=== PATIENT | male | born 1950 | race Caucasian/White ===

== ENCOUNTER → 2018-07-08 | Outpatient (CLI) | payer MEDICARE | END | disposition home or self-care (01) | LOC: CFH 13:37 | PROVIDERS: ATTEND Internal Medicine Cardiovascular Disease | DX: I08.3 Combined rheumatic disorders of mitral, aortic and tricuspid valves (principal); I10 Essential (primary) hypertension; E78.5 Hyperlipidemia, unspecified; Z87.891 Personal history of nicotine dependence | CPT/HCPCS: 93306 ==

== ENCOUNTER 2018-10-29 10:44 | Day surgery (SDC) | payer MEDICARE ==
[~2018-10-29] VITALS: Ht 172.7 cm; Wt 72.7 kg
[2018-10-29] MEDS ORDERED: PLEASE ENTER ALLERGIES MC SCH (11:30)
[2018-10-29] MEDS ORDERED: PLEASE ENTER HEIGHT AND WEIGHT MC SCH (11:30)
[2018-10-29] MEDS ORDERED: SODIUM CHLORIDE 0.9% 1,000 ML IV SCH (11:30)
[2018-10-29 11:32] VITALS: BP 138/73
[2018-10-29] MEDS ORDERED: SIMV40TA3 PO (11:37)
[2018-10-29] MEDS ORDERED: DILT120C80 PO (11:37)
[2018-10-29] MEDS ORDERED: PROPOFOL 10 MG/ML, 20ML ONE (12:38)
== END 2018-10-29 14:09 | disposition home or self-care (01) ==
LOC: CACL 10:44
PROVIDERS: ATTEND Internal Medicine Cardiovascular Disease
DX: I34.0 Nonrheumatic mitral (valve) insufficiency (principal); I36.1 Nonrheumatic tricuspid (valve) insufficiency; E78.5 Hyperlipidemia, unspecified; I10 Essential (primary) hypertension; Z87.891 Personal history of nicotine dependence; Z88.1 Allergy status to other antibiotic agents
CPT/HCPCS: 93312; 93321; 93325; J2704

== ENCOUNTER 2018-12-06 13:11 | Day surgery (SDC) | payer MEDICARE ==
[2018-12-04 15:46] LABS: BASOPHILS # (AUTO) 0.05 x10^3/uL (0-0.1); BASOPHILS % (AUTO) 1 % (0-1); EOSINOPHILS # (AUTO) 0.02 x10^3/uL (0-0.4); EOSINOPHILS % (AUTO) 0 % (1-7); LYMPHOCYTES # (AUTO) 1.51 x10^3/uL (1-3.4); LYMPHOCYTES % (AUTO) 22 % (22-44); MD NO; MEAN CORPUSCULAR HEMOGLOBIN 30.9 pg (27.5-34.5); MEAN CORPUSCULAR HGB CONC 33.8 g/dL (33.2-36.2); MEAN CORPUSCULAR VOLUME 91.6 fL (81-97); MEAN PLATELET VOLUME 7.3 fL (7.4-10.4); MONOCYTES # (AUTO) 0.43 x10^3/uL (0.2-0.8); MONOCYTES % (AUTO) 6 % (2-9); NEUTROPHILS # (AUTO) 4.77 x10^3/uL (1.8-6.8); NEUTROPHILS % (AUTO) 70 % (42-75); PLATELET COUNT 215 x10^3/uL (130-400); RED BLOOD COUNT 5.24 x10^6/uL (4.38-5.82); RED CELL DISTRIBUTION WIDTH 13.5 % (9.4-14.8)
[2018-12-04 15:52] VITALS: BP 151/78
[2018-12-04 15:56] LABS: ANION GAP 4 mmol/L (5-15); CALCIUM 9.2 mg/dL (8.5-10.1); CHLORIDE 107 mmol/L (98-107); CREATININE 1.25 mg/dL (0.7-1.3)
[~2018-12-06] VITALS: Ht 172.7 cm; Wt 72.7 kg
[~2018-12-06 13:11] MED LIST: DILT120C80 PO; FISH1CAP PO; MELA1TAB6 PO; SIMV40TA3 PO
[2018-12-06] MEDS ORDERED: SODIUM CHLORIDE 0.9% 1,000 ML IV ONE (13:26)
[2018-12-06] MEDS ORDERED: ASPIRIN 325 MG TABLET EC PO ONE (13:30)
[2018-12-06] MEDS ORDERED: ASPIRIN 325 MG TABLET EC ONE (13:56)
[2018-12-06] MEDS ORDERED: HEPARIN 1,000 UNITS/ML, 10ML ONE (14:17)
[2018-12-06] MEDS ORDERED: VERAPAMIL 2.5 MG/ML, 2ML ONE (14:17)
[2018-12-06] MEDS ORDERED: FENTANYL PF 100 MCG/2ML ONE (14:17)
[2018-12-06] MEDS ORDERED: MIDAZOLAM 1 MG/ML, 5ML ONE (14:17)
[2018-12-06] MEDS ORDERED: LIDOCAINE-MPF 1%, 5ML ONE (14:18)
[2018-12-06] MEDS ORDERED: PRASUGREL 10 MG TABLET ONE (14:18)
== END 2018-12-06 17:00 | disposition home or self-care (01) ==
LOC: CACL 13:11
PROVIDERS: ATTEND Internal Medicine Cardiovascular Disease
DX: I08.0 Rheumatic disorders of both mitral and aortic valves (principal); E78.2 Mixed hyperlipidemia; I10 Essential (primary) hypertension; Z88.8 Allergy status to other drugs, medicaments and biological substances; Z87.891 Personal history of nicotine dependence; Z79.82 Long term (current) use of aspirin
CPT/HCPCS: 36415; 71046; 80048; 85025; 93458; 99156; C1769; C1894; J1644; J2250; J3010; Q9967

== ENCOUNTER 2019-01-24 12:14 | Outpatient (CLI) | payer MEDICARE ==
[2019-01-24 15:09] LABS: MICROSCOPIC NOT IND
[2019-01-24 15:11] LABS: CULTURE INDICATED? NO
[2019-01-24 15:13] LABS: BASOPHILS # (AUTO) 0.04 x10^3/uL (0-0.1); BASOPHILS % (AUTO) 1 % (0-1); EOSINOPHILS # (AUTO) 0.04 x10^3/uL (0-0.4); EOSINOPHILS % (AUTO) 1 % (1-7); LYMPHOCYTES # (AUTO) 1.71 x10^3/uL (1-3.4); LYMPHOCYTES % (AUTO) 24 % (22-44); MD NO; MEAN CORPUSCULAR HEMOGLOBIN 30.3 pg (27.5-34.5); MEAN CORPUSCULAR HGB CONC 32.2 g/dL (33.2-36.2); MEAN CORPUSCULAR VOLUME 94.1 fL (81-97); MEAN PLATELET VOLUME 7.2 fL (7.4-10.4); MONOCYTES # (AUTO) 0.38 x10^3/uL (0.2-0.8); MONOCYTES % (AUTO) 5 % (2-9); NEUTROPHILS % (AUTO) 69 % (42-75); PLATELET COUNT 200 x10^3/uL (130-400); RED BLOOD COUNT 5.33 x10^6/uL (4.38-5.82); RED CELL DISTRIBUTION WIDTH 13.8 % (9.4-14.8)
[2019-01-24 15:18] LABS: ALANINE AMINOTRANSFERASE 34 U/L (12-78); ALBUMIN 4.1 g/dL (3.4-5.0); ANION GAP 7 mmol/L (5-15); CALCIUM 9.2 mg/dL (8.5-10.1); CHLORIDE 106 mmol/L (98-107)
[2019-01-24 15:21] LABS: ALKALINE PHOSPHATASE 56 U/L (45-117); BILIRUBIN,TOTAL 0.8 mg/dL (0.2-1.0); CREATININE 1.24 mg/dL (0.7-1.3); TOTAL PROTEIN 7.5 g/dL (6.4-8.2)
[2019-01-24 16:35] LABS: INTERNATIONAL NORMALIZED RATIO 1.02 (0.93-1.1); PROTHROMBIN TIME 10.7 Seconds (9.6-11.5)
== END 2019-01-24 23:59 | disposition home or self-care (01) ==
LOC: CACL 12:14
PROVIDERS: ATTEND Thoracic Surgery (Cardiothoracic Vascular Surgery)
DX: I65.22 Occlusion and stenosis of left carotid artery (principal); I08.0 Rheumatic disorders of both mitral and aortic valves; M47.814 Spondylosis without myelopathy or radiculopathy, thoracic region; R94.31 Abnormal electrocardiogram [ECG] [EKG]; Z79.899 Other long term (current) drug therapy
CPT/HCPCS: 36415; 71046; 80053; 81003; 83036; 85025; 85610; 85730; 93005; 93880

== ENCOUNTER 2019-01-28 07:30 | Inpatient (IN) | payer MEDICARE ==
[~2019-01-28] VITALS: Ht 172.7 cm; Wt 88.0 kg
[~2019-01-28 07:30] MED LIST changes: +ALBUMIN HUMAN 5% 500 ML IV PRN; +DEXMEDETOMIDINE 200 MCG in SODIUM CHLORIDE 0.9% 48 ML IV SCH; +EPINEPHRINE 2 MG in SODIUM CHLORIDE 0.9% 248 ML IV SCH; +MANNITOL PMX 20% 500 ML IVPB PRN; +PHENYLEPHRINE 10 MG in SODIUM CHLORIDE 0.9% 249 ML IV PRN; +POTASSIUM CHLORIDE 80 MEQ, SODIUM BICARBONATE 8.4% 10 MEQ, MAGNESIUM SULFATE 0.5 GM, LI... IV PRN; +REGULAR INSULIN 62.5 UNITS in SODIUM CHLORIDE 0.9% 249.375 ML IV PRN
[2019-01-28 09:10] VITALS: BP_SYST 130; BP_SYST 144; BP_DIAS 78; BP_DIAS 79
[2019-01-28] MEDS ORDERED: INSULIN LISPRO 100 UNITS/ML, PEN SQ-INSULIN SCH (09:30)
[2019-01-28] MEDS ORDERED: CEFUROXIME 1.5 GM in SODIUM CHLORIDE 0.9% 50 ML IVPB ONE (09:30)
[2019-01-28] MEDS ORDERED: VANCOMYCIN 1,100 MG in SODIUM CHLORIDE 0.9% 250 ML IV ONE (09:30)
[2019-01-28] MEDS ORDERED: CHLORHEXIDINE 15 ML UDC MM PRN (09:30)
[2019-01-28 09:39] LABS: BASOPHILS # (AUTO) 0.03 x10^3/uL (0-0.1); BASOPHILS % (AUTO) 1 % (0-1); EOSINOPHILS # (AUTO) 0.02 x10^3/uL (0-0.4); EOSINOPHILS % (AUTO) 1 % (1-7); LYMPHOCYTES # (AUTO) 1.02 x10^3/uL (1-3.4); LYMPHOCYTES % (AUTO) 19 % (22-44); MD NO; MEAN CORPUSCULAR HEMOGLOBIN 30.5 pg (27.5-34.5); MEAN CORPUSCULAR HGB CONC 32.2 g/dL (33.2-36.2); MEAN CORPUSCULAR VOLUME 94.5 fL (81-97); MEAN PLATELET VOLUME 7.1 fL (7.4-10.4); MONOCYTES # (AUTO) 0.33 x10^3/uL (0.2-0.8); MONOCYTES % (AUTO) 6 % (2-9); NEUTROPHILS # (AUTO) 3.95 x10^3/uL (1.8-6.8); NEUTROPHILS % (AUTO) 74 % (42-75); PLATELET COUNT 194 x10^3/uL (130-400); RED BLOOD COUNT 4.97 x10^6/uL (4.38-5.82); RED CELL DISTRIBUTION WIDTH 13.5 % (9.4-14.8)
[2019-01-28 09:47] LABS: ALBUMIN 3.8 g/dL (3.4-5.0); CALCIUM 8.9 mg/dL (8.5-10.1)
[2019-01-28 09:48] LABS: INTERNATIONAL NORMALIZED RATIO 1.02 (0.93-1.1); PROTHROMBIN TIME 10.7 Seconds (9.6-11.5)
[2019-01-28 09:53] LABS: ALANINE AMINOTRANSFERASE 28 U/L (12-78); ALKALINE PHOSPHATASE 52 U/L (45-117); ANION GAP 4 mmol/L (5-15); CHLORIDE 109 mmol/L (98-107); TOTAL PROTEIN 6.9 g/dL (6.4-8.2)
[2019-01-28 10:25] LABS: HEMOGLOBIN A1C 5.9 % (4.2-6.3)
[2019-01-28 11:00] LABS: MICROSCOPIC NOT IND
[2019-01-28] MEDS: MUPIROCIN OINT 2%, 1 GM APPL. TP SCH ×2 (11:00→21:00)
[2019-01-28] MEDS ORDERED: MIDAZOLAM 10MG/2 ML ONE (12:22)
[2019-01-28] MEDS ORDERED: FENTANYL PF 250 MCG/5ML ONE ×5 (12:23→14:10)
[2019-01-28] MEDS ORDERED: GLYCOPYRROLATE 0.2MG/1ML, 5ML ONE (13:29)
[2019-01-28] MEDS ORDERED: PROTAMINE SULFATE 10 MG/ML, 25ML ONE ×2 (14:10)
[2019-01-28] MEDS ORDERED: CALCIUM CHLORIDE 10%, 10ML SYR ONE (14:12)
[2019-01-28] MEDS ORDERED: PHENYLEPHRINE 10 MG in SODIUM CHLORIDE 0.9% 249 ML IV PRN (14:58)
[2019-01-28] MEDS ORDERED: REGULAR INSULIN 62.5 UNITS in SODIUM CHLORIDE 0.9% 249.375 ML IV PRN (14:58)
[2019-01-28] MEDS ORDERED: DOBUTAMINE 250 MG in SODIUM CHLORIDE 0.9% 230 ML IV PRN (14:58)
[2019-01-28] MEDS ORDERED: VASOPRESSIN 50 UNIT in SODIUM CHLORIDE 0.9% 247.5 ML IV PRN (14:58)
[2019-01-28] MEDS ORDERED: NITROGLYCERIN/D5W PMX 250 ML IV PRN (14:58)
[2019-01-28] MEDS ORDERED: DEXMEDETOMIDINE 200 MCG in SODIUM CHLORIDE 0.9% 48 ML IV PRN (14:58)
[2019-01-28] MEDS ORDERED: SODIUM CHLORIDE 0.9% 1,000 ML IV PRN (14:58)
[2019-01-28] MEDS ORDERED: SODIUM BICARB 8.4%, 50ML SYRINGE IV PRN (15:00)
[2019-01-28] MEDS ORDERED: GLUCAGON 1 MG IM PRN (15:00)
[2019-01-28] MEDS ORDERED: PROCHLORPERAZINE 5 MG/ML, 2ML IVPush PRN (15:00)
[2019-01-28] MEDS: KSCALE TO 4.5 IV SCH ×2 (15:00→21:00)
[2019-01-28] MEDS ORDERED: FENTANYL PF 100 MCG/2ML IVPush PRN (15:00)
[2019-01-28] MEDS ORDERED: MIDAZOLAM 1 MG/ML, 5ML IVPush PRN (15:00)
[2019-01-28] MEDS ORDERED: EPINEPHRINE 2 MG in SODIUM CHLORIDE 0.9% 248 ML IV PRN (15:00)
[2019-01-28] MEDS ORDERED: ACETAMINOPHEN 650 MG SUPP PR PRN (15:00)
[2019-01-28] MEDS ORDERED: BISACODYL 5 MG EC TABLET PO PRN (15:00)
[2019-01-28] MEDS ORDERED: INSULIN REGULAR 100 UNITS/ML, 3ML VIAL IVPush PRN (15:00)
[2019-01-28] MEDS ORDERED: ONDANSETRON 2MG/ML, 2ML IVPush PRN (15:00)
[2019-01-28] MEDS ORDERED: ACETAMINOPHEN 325 MG TABLET PO PRN (15:00)
[2019-01-28] MEDS ORDERED: HYDROcodone/APAP 10/325 MG TABLET PO PRN (15:00)
[2019-01-28] MEDS ORDERED: morphine SULFATE 10 MG/ML, 1ML IVPush PRN (15:00)
[2019-01-28] MEDS ORDERED: DEXTROSE 4 GM TAB.CHEW PO PRN (15:00)
[2019-01-28] MEDS ORDERED: DEXTROSE 50%, 50ML SYRINGE IVPush PRN (15:00)
[2019-01-28] MEDS ORDERED: BISACODYL 10 MG SUPP PR PRN (15:00)
[2019-01-28] MEDS: INSULIN LISPRO 100 UNITS/ML, PEN SQ-INSULIN SCH ×2 (16:00→21:00)
[2019-01-28] MEDS ORDERED: HEPARIN 1,000 UNITS/ML, 30ML ONE (17:07)
[2019-01-28] MEDS ORDERED: methylPREDNISolone SOD SUCC 125 MG/2 ML ONE (17:07)
[2019-01-28] MEDS ORDERED: SODIUM BICARBONATE 1 MEQ/ML, 50ML VIAL ONE (17:07)
[2019-01-28] MEDS ORDERED: LIDOCAINE 2% 100MG/5ML SYRINGE ONE (17:07)
[2019-01-28] MEDS ORDERED: ALBUMIN HUMAN 25% 50 ML ONE (17:08)
[2019-01-28 17:25] LABS: GLUCOSE BY BLOOD GAS ANALYZER 136 mg/dL (70-110); HEMOGLOBIN BY BLOOD GAS ANALYZ 13.1 g/dL (14.0-18.0); POTASSIUM BY BLOOD GAS ANALYZR 3.1 mmol/L (3.6-5.5)
[2019-01-28] MEDS: MAGNESIUM SULFATE 1 GM in SODIUM CHLORIDE 0.9% 50 ML IVPB SCH (17:34)
[2019-01-28 17:35] LABS: INTERNATIONAL NORMALIZED RATIO 1.66 (0.93-1.1); PROTHROMBIN TIME 17.1 Seconds (9.6-11.5)
[2019-01-28] MEDS ORDERED: POTASSIUM CHLORIDE 30 MEQ in SODIUM CHLORIDE 0.9% 100 ML IV ONE (18:00)
[2019-01-28] MEDS: CEFUROXIME 1.5 GM in SODIUM CHLORIDE 0.9% 50 ML IVPB SCH (20:25)
[2019-01-28] MEDS: SODIUM CHLORIDE FLUSH 10ML SYR IVF SCH ×2 (21:00→22:21)
[2019-01-28] MEDS: MUPIROCIN OINT 2%, 22GM NAS SCH (21:00)
[2019-01-28] MEDS: DOCUSATE 100 MG CAPSULE PO SCH (21:00)
[2019-01-28] MEDS: VANCOMYCIN 1,100 MG in SODIUM CHLORIDE 0.9% 250 ML IVPB SCH (22:18)
[2019-01-28] MEDS: LACTATED RINGERS 1,000 ML IV PRN (22:19)
[2019-01-28] MEDS ORDERED: MORPHINE SULFATE 4 MG/ML, 1ML ONE (23:06)
[2019-01-29] MEDS: HYDROcodone/APAP 5/325 TABLET PO PRN ×2 (00:16→05:40)
[2019-01-29] MEDS: LACTATED RINGERS 1,000 ML IV PRN (00:38)
[2019-01-29] MEDS: KSCALE TO 4.5 IV SCH ×2 (03:00→09:00)
[2019-01-29 04:01] LABS: FIO2 RA %
[2019-01-29 04:12] LABS: INTERNATIONAL NORMALIZED RATIO 1.15 (0.93-1.1)
[2019-01-29 04:13] LABS: ALBUMIN 3.1 g/dL (3.4-5.0); ANION GAP 6 mmol/L (5-15); CALCIUM 7.7 mg/dL (8.5-10.1); CHLORIDE 117 mmol/L (98-107); CREATININE 0.95 mg/dL (0.7-1.3)
[2019-01-29 04:16] LABS: MEAN CORPUSCULAR HEMOGLOBIN 29.9 pg (27.5-34.5); MEAN CORPUSCULAR VOLUME 93.7 fL (81-97); RED BLOOD COUNT 4.04 x10^6/uL (4.38-5.82); RED CELL DISTRIBUTION WIDTH 13.5 % (9.4-14.8)
[2019-01-29 04:52] LABS: MEAN PLATELET VOLUME 7.7 fL (7.4-10.4); PLATELET COUNT 98 x10^3/uL (130-400)
[2019-01-29 05:49] LABS: BASOPHILS % (AUTO) 0 % (0-1); EOSINOPHILS % (AUTO) 0 % (1-7); LYMPHOCYTES # (AUTO) 0.26 x10^3/uL (1-3.4); LYMPHOCYTES % (AUTO) 2 % (22-44); MD SCAN; MONOCYTES # (AUTO) 0.58 x10^3/uL (0.2-0.8); MONOCYTES % (AUTO) 5 % (2-9); NEUTROPHILS # (AUTO) 10.98 x10^3/uL (1.8-6.8); NEUTROPHILS % (AUTO) 93 % (42-75)
[2019-01-29] MEDS: INSULIN LISPRO 100 UNITS/ML, PEN SQ-INSULIN SCH ×4 (07:00→20:55)
[2019-01-29] MEDS: CEFUROXIME 1.5 GM in SODIUM CHLORIDE 0.9% 50 ML IVPB SCH (07:26)
[2019-01-29] MEDS: MUPIROCIN OINT 2%, 1 GM APPL. TP SCH (07:27)
[2019-01-29] MEDS: SODIUM CHLORIDE FLUSH 10ML SYR IVF SCH ×4 (07:28→20:45)
[2019-01-29] MEDS: MUPIROCIN OINT 2%, 22GM NAS SCH ×2 (07:29→20:46)
[2019-01-29] MEDS: OXYcodone IR 5MG TABLET PO PRN ×7 (07:47→23:39)
[2019-01-29] MEDS: ASPIRIN 81 MG TABLET EC PO SCH (07:47)
[2019-01-29] MEDS: DOCUSATE 100 MG CAPSULE PO SCH ×2 (07:47→20:46)
[2019-01-29] MEDS: VANCOMYCIN 1,100 MG in SODIUM CHLORIDE 0.9% 250 ML IVPB SCH (08:14)
[2019-01-29] MEDS: WARFARIN BIOPROSTHETIC VALVE PROTOCOL 2-3 XX SCH (09:00)
[2019-01-29] MEDS ORDERED: ROCURONIUM 10 MG/ML,10ML ONE (12:47)
[2019-01-29] MEDS: MAGNESIUM SULFATE 1 GM in SODIUM CHLORIDE 0.9% 50 ML IVPB SCH (14:18)
[2019-01-29] MEDS ORDERED: WARFARIN 5 MG TABLET PO-COUM ONE (18:00)
[2019-01-29] MEDS: CHLORHEXIDINE 15 ML UDC MM SCH (20:45)
[2019-01-30] MEDS: OXYcodone IR 5MG TABLET PO PRN ×4 (00:06→16:38)
[2019-01-30 05:13] LABS: MEAN CORPUSCULAR HEMOGLOBIN 30.9 pg (27.5-34.5); MEAN CORPUSCULAR VOLUME 93.6 fL (81-97); MEAN PLATELET VOLUME 7.8 fL (7.4-10.4); PLATELET COUNT 88 x10^3/uL (130-400); RED BLOOD COUNT 4.05 x10^6/uL (4.38-5.82)
[2019-01-30 05:27] LABS: ANION GAP 8 mmol/L (5-15); CALCIUM 7.9 mg/dL (8.5-10.1); CHLORIDE 104 mmol/L (98-107); INTERNATIONAL NORMALIZED RATIO 1.05 (0.93-1.1)
[2019-01-30 05:30] LABS: CREATININE 0.98 mg/dL (0.7-1.3)
[2019-01-30 05:42] LABS: MD YES
[2019-01-30 05:43] LABS: BAND#(MANUAL) 0.75 x10^3/uL; BANDS%(MANUAL) 4 % (0-7); LYMPH#(MANUAL) 0.37 x10^3/uL (1-3.4); LYMPHS% (MANUAL) 2 % (22-44); MONOS#(MANUAL) 1.12 x10^3/uL (0.3-2.7); MONOS% (MANUAL) 6 % (2-9); SEG#(MANUAL) 16.46 x10^3/uL (1.8-6.8); SEGS% (MANUAL) 88 % (42-75)
[2019-01-30 05:44] LABS: <PLATELET ESTIMATE> DECREASED; <PLT MORPHOLOGY> NORMAL PLT MORPH; <RBC MORPHOLOGY> NORMAL
[2019-01-30] MEDS: ASPIRIN 81 MG TABLET EC PO SCH (08:05)
[2019-01-30] MEDS: HYDROcodone/APAP 5/325 TABLET PO PRN ×2 (08:05→20:40)
[2019-01-30] MEDS: CHLORHEXIDINE 15 ML UDC MM SCH ×2 (08:05→20:39)
[2019-01-30] MEDS: DOCUSATE 100 MG CAPSULE PO SCH ×2 (08:05→20:52)
[2019-01-30] MEDS: SODIUM CHLORIDE FLUSH 10ML SYR IVF SCH ×4 (08:10→20:48)
[2019-01-30] MEDS: MUPIROCIN OINT 2%, 22GM NAS SCH ×2 (08:10→20:40)
[2019-01-30] MEDS: INSULIN LISPRO 100 UNITS/ML, PEN SQ-INSULIN SCH ×4 (08:11→20:46)
[2019-01-30] MEDS: WARFARIN BIOPROSTHETIC VALVE PROTOCOL 2-3 XX SCH (08:11)
[2019-01-30] MEDS ORDERED: CEFAZOLIN PMX 1GM/50ML 50 ML IVPB ONE (10:00)
[2019-01-30] MEDS: MAGNESIUM SULFATE 1 GM in SODIUM CHLORIDE 0.9% 50 ML IVPB SCH (15:00)
[2019-01-30] MEDS ORDERED: WARFARIN 2.5 MG TABLET PO-COUM SCH (18:00)
[2019-01-30] MEDS ORDERED: WARFARIN 5 MG TABLET PO-COUM SCH (18:00)
[2019-01-30] MEDS: SIMVASTATIN 40 MG TABLET PO SCH (20:41)
[2019-01-31] MEDS: SODIUM CHLORIDE 0.9% 1,000 ML IV SCH ×3 (03:13→19:35)
[2019-01-31 03:15] LABS: MEAN CORPUSCULAR HEMOGLOBIN 31.2 pg (27.5-34.5); MEAN CORPUSCULAR HGB CONC 33.3 g/dL (33.2-36.2); MEAN CORPUSCULAR VOLUME 93.7 fL (81-97); PLATELET COUNT 71 x10^3/uL (130-400); RED BLOOD COUNT 4.12 x10^6/uL (4.38-5.82); RED CELL DISTRIBUTION WIDTH 13.8 % (9.4-14.8)
[2019-01-31 03:24] LABS: ANION GAP 7 mmol/L (5-15); CHLORIDE 107 mmol/L (98-107)
[2019-01-31 03:35] LABS: MD YES
[2019-01-31 03:36] LABS: <PLATELET ESTIMATE> DECREASED; <PLT MORPHOLOGY> NORMAL PLT MORPH; <RBC MORPHOLOGY> NORMAL; LYMPH#(MANUAL) 0.69 x10^3/uL (1-3.4); LYMPHS% (MANUAL) 5 % (22-44); MONOS#(MANUAL) 0.69 x10^3/uL (0.3-2.7); MONOS% (MANUAL) 5 % (2-9); SEG#(MANUAL) 12.42 x10^3/uL (1.8-6.8); SEGS% (MANUAL) 90 % (42-75)
[2019-01-31] MEDS: OXYcodone IR 5MG TABLET PO PRN ×2 (05:01→21:49)
[2019-01-31] MEDS: INSULIN LISPRO 100 UNITS/ML, PEN SQ-INSULIN SCH ×2 (07:00→11:00)
[2019-01-31] MEDS: DOCUSATE 100 MG CAPSULE PO SCH (09:00)
[2019-01-31] MEDS ORDERED: MAGNESIUM HYDROXIDE 8%, 30ML UDC PO PRN (11:00)
[2019-01-31] MEDS: ASPIRIN 81 MG TABLET EC PO SCH (11:04)
[2019-01-31] MEDS: CHLORHEXIDINE 15 ML UDC MM SCH (11:04)
[2019-01-31] MEDS: SODIUM CHLORIDE FLUSH 10ML SYR IVF SCH ×5 (11:04→21:45)
[2019-01-31] MEDS: MUPIROCIN OINT 2%, 22GM NAS SCH ×2 (11:06→21:42)
[2019-01-31] MEDS ORDERED: VANCOMYCIN 500 MG ONE (15:14)
[2019-01-31] MEDS ORDERED: VANCOMYCIN PMX 1GM/200ML 200 ML ONE (15:14)
[2019-01-31] MEDS ORDERED: LIDOCAINE 1%, 20ML ONE ×2 (15:14→15:22)
[2019-01-31] MEDS ORDERED: FENTANYL PF 100 MCG/2ML ONE (15:14)
[2019-01-31] MEDS ORDERED: MIDAZOLAM 1 MG/ML, 2ML ONE ×2 (15:14→15:35)
[2019-01-31] MEDS ORDERED: HOLD MEDICATION MC PRN (17:00)
[2019-01-31 18:43] VITALS: BP 126/77
[2019-01-31] MEDS: SIMVASTATIN 40 MG TABLET PO SCH (21:42)
[2019-02-01 03:55] VITALS: BP 118/84
[2019-02-01 04:27] LABS: MEAN CORPUSCULAR VOLUME 93.9 fL (81-97); MEAN PLATELET VOLUME 8.2 fL (7.4-10.4); PLATELET COUNT 88 x10^3/uL (130-400); RED BLOOD COUNT 3.84 x10^6/uL (4.38-5.82); RED CELL DISTRIBUTION WIDTH 13.7 % (9.4-14.8)
[2019-02-01 04:28] LABS: ANION GAP 6 mmol/L (5-15); CALCIUM 7.7 mg/dL (8.5-10.1); CHLORIDE 108 mmol/L (98-107)
[2019-02-01 04:29] LABS: CREATININE 0.79 mg/dL (0.7-1.3)
[2019-02-01 04:58] LABS: MD YES
[2019-02-01 04:59] LABS: BAND#(MANUAL) 0.11 x10^3/uL; BANDS%(MANUAL) 1 % (0-7); LYMPH#(MANUAL) 0.74 x10^3/uL (1-3.4); LYMPHS% (MANUAL) 7 % (22-44); MONOS#(MANUAL) 0.95 x10^3/uL (0.3-2.7); MONOS% (MANUAL) 9 % (2-9); REACTIVE LYMPHS # (MANUAL) 0.11 x10^3/uL (0-0); REACTIVE LYMPHS % (MANUAL) 1 % (0-0); SEG#(MANUAL) 8.69 x10^3/uL (1.8-6.8); SEGS% (MANUAL) 82 % (42-75)
[2019-02-01 05:00] LABS: <PLATELET ESTIMATE> DECREASED; <PLT MORPHOLOGY> NORMAL PLT MORPH; ANISOCYTOSIS 1+; OVALOCYTES 1+
[2019-02-01] MEDS: OXYcodone IR 5MG TABLET PO PRN ×2 (06:43→21:52)
[2019-02-01 06:56] VITALS: BP 130/89
[2019-02-01] MEDS: SODIUM CHLORIDE FLUSH 10ML SYR IVF SCH ×5 (07:44→21:13)
[2019-02-01] MEDS: DOCUSATE 100 MG CAPSULE PO SCH (07:44)
[2019-02-01] MEDS: ASPIRIN 81 MG TABLET EC PO SCH (08:30)
[2019-02-01] MEDS: MUPIROCIN OINT 2%, 22GM NAS SCH ×2 (08:31→21:13)
[2019-02-01 09:17] LABS: INTERNATIONAL NORMALIZED RATIO 1.06 (0.93-1.1); PROTHROMBIN TIME 11.1 Seconds (9.6-11.5)
[2019-02-01 11:46] VITALS: BP 99/68
[2019-02-01 13:59] VITALS: BP 116/73
[2019-02-01] MEDS ORDERED: WARFARIN 5 MG TABLET PO-COUM ONE (18:00)
[2019-02-01 18:24] VITALS: BP 103/69
[2019-02-01] MEDS: SIMVASTATIN 40 MG TABLET PO SCH (21:12)
[2019-02-02 00:12] VITALS: BP 107/68
[2019-02-02 04:42] LABS: BASOPHILS # (AUTO) 0.11 x10^3/uL (0-0.1); BASOPHILS % (AUTO) 1 % (0-1); EOSINOPHILS % (AUTO) 1 % (1-7); LYMPHOCYTES # (AUTO) 1.33 x10^3/uL (1-3.4); LYMPHOCYTES % (AUTO) 16 % (22-44); MD NO; MEAN CORPUSCULAR HEMOGLOBIN 31.1 pg (27.5-34.5); MEAN CORPUSCULAR HGB CONC 32.7 g/dL (33.2-36.2); MEAN CORPUSCULAR VOLUME 95.2 fL (81-97); MEAN PLATELET VOLUME 7.9 fL (7.4-10.4); MONOCYTES # (AUTO) 0.67 x10^3/uL (0.2-0.8); MONOCYTES % (AUTO) 8 % (2-9); NEUTROPHILS % (AUTO) 74 % (42-75); PLATELET COUNT 102 x10^3/uL (130-400); RED BLOOD COUNT 3.57 x10^6/uL (4.38-5.82); RED CELL DISTRIBUTION WIDTH 13.5 % (9.4-14.8)
[2019-02-02 04:47] LABS: INTERNATIONAL NORMALIZED RATIO 1.09 (0.93-1.1); PROTHROMBIN TIME 11.4 Seconds (9.6-11.5)
[2019-02-02 04:49] LABS: ANION GAP 3 mmol/L (5-15); CALCIUM 7.9 mg/dL (8.5-10.1); CHLORIDE 109 mmol/L (98-107); CREATININE 0.94 mg/dL (0.7-1.3)
[2019-02-02 06:57] VITALS: BP 108/76
[2019-02-02] MEDS: SODIUM CHLORIDE FLUSH 10ML SYR IVF SCH ×2 (08:42→08:50)
[2019-02-02] MEDS ORDERED: OXYC5TAB3 PO (08:48)
[2019-02-02] MEDS ORDERED: WARF5TAB PO-COUM (08:48)
[2019-02-02] MEDS: MUPIROCIN OINT 2%, 22GM NAS SCH (08:50)
[2019-02-02] MEDS: DOCUSATE 100 MG CAPSULE PO SCH (08:50)
[2019-02-02] MEDS ORDERED: POTASSIUM CHLORIDE 20 MEQ TAB.ER.PRT PO ONE (09:00)
[2019-02-02] MEDS ORDERED: WARFARIN 5 MG TABLET PO-COUM SCH (18:00)
== END 2019-02-02 12:12 | disposition home or self-care (01) | DRG 219 ==
LOC: ORIP 07:34 → 5SO 07:53 → CSU 12:39 → 5SO 01-31 15:34
PROVIDERS: ADMIT Thoracic Surgery (Cardiothoracic Vascular Surgery); ATTEND Thoracic Surgery (Cardiothoracic Vascular Surgery)
PROC: 02UG08Z Supplement Mitral Valve with Zooplastic Tissue, Open Approach (ICD-10-PCS; 2019-01-28)
PROC: 5A1221Z Performance of Cardiac Output, Continuous (ICD-10-PCS; 2019-01-28)
PROC: 02BG0ZZ Excision of Mitral Valve, Open Approach (ICD-10-PCS; 2019-01-28)
PROC: 03HY32Z Insertion of Monitoring Device into Upper Artery, Percutaneous Approach (ICD-10-PCS; 2019-01-28)
PROC: 05HM33Z Insertion of Infusion Device into Right Internal Jugular Vein, Percutaneous Approach (ICD-10-PCS; 2019-01-28)
PROC: B543ZZA Ultrasonography of Right Jugular Veins, Guidance (ICD-10-PCS; 2019-01-28)
PROC: 02RF0JZ Replacement of Aortic Valve with Synthetic Substitute, Open Approach (ICD-10-PCS; principal; 2019-01-28 16:00)
PROC: 02H63JZ Insertion of Pacemaker Lead into Right Atrium, Percutaneous Approach (ICD-10-PCS; 2019-01-31)
PROC: 02HK3JZ Insertion of Pacemaker Lead into Right Ventricle, Percutaneous Approach (ICD-10-PCS; 2019-01-31)
PROC: 0JH606Z Insertion of Pacemaker, Dual Chamber into Chest Subcutaneous Tissue and Fascia, Open Approach (ICD-10-PCS; 2019-01-31)
DX: I08.0 Rheumatic disorders of both mitral and aortic valves (principal); I50.33 Acute on chronic diastolic (congestive) heart failure; D68.69 Other thrombophilia; I44.2 Atrioventricular block, complete; J98.11 Atelectasis; E78.5 Hyperlipidemia, unspecified; I11.0 Hypertensive heart disease with heart failure; I45.10 Unspecified right bundle-branch block; I48.91 Unspecified atrial fibrillation; Z72.0 Tobacco use; Z79.01 Long term (current) use of anticoagulants; Z82.49 Family history of ischemic heart disease and other diseases of the circulatory system
CPT/HCPCS: 33208; 36415; 36600; 71045; 80048; 80053; 81003; 82040; 82330; 82800; 82803; 82810; 82947; 82962; 83036; 83735; 84132; 84295; 85014; 85018; 85025; 85049; 85347; 85610; 85730; 86850; 86900; 86923; 87081; 88305; 88311; 93005; 93312; 93321; 93325; 94002; 94150; 99156; 99157; C1768; C1779; C1785; C1892; G0378; J0697; J1644; J1815; J2250; J2720; J3010; J3370; J3475; J3480; P9045; P9047; C1751; C1760; J0171; J2270; J2370; J2930; J7030; J7050; J7120

== ENCOUNTER 2019-03-13 15:24 | Emergency (ER) | payer MEDICARE ==
[~2019-03-13] VITALS: Ht 172.7 cm; Wt 70.0 kg
[~2019-03-13 15:24] MED LIST changes: -ALBUMIN HUMAN 5% 500 ML IV PRN; -DEXMEDETOMIDINE 200 MCG in SODIUM CHLORIDE 0.9% 48 ML IV SCH; -EPINEPHRINE 2 MG in SODIUM CHLORIDE 0.9% 248 ML IV SCH; -MANNITOL PMX 20% 500 ML IVPB PRN; +OXYC5TAB3 PO; -PHENYLEPHRINE 10 MG in SODIUM CHLORIDE 0.9% 249 ML IV PRN; -POTASSIUM CHLORIDE 80 MEQ, SODIUM BICARBONATE 8.4% 10 MEQ, MAGNESIUM SULFATE 0.5 GM, LI... IV PRN; -REGULAR INSULIN 62.5 UNITS in SODIUM CHLORIDE 0.9% 249.375 ML IV PRN; +WARF5TAB PO-COUM
[2019-03-13 15:26] VITALS: BP 135/83
--- NOTE | 2019-03-13 16:03 | NUR ---
INTERMIITENT VISSUAL DISTURBANCE IN THE R EYE. NO SYMPTOMS AT THIS TIME. 20/25 TO BOTH EYES. REPORTS SYMPTOMS STARTED AFTER CARDIAC PROCEDURE 01/19 ON COUMADIN
[2019-03-13 16:12] LABS: INTERNATIONAL NORMALIZED RATIO 2.2 (0.93-1.1); PROTHROMBIN TIME 22.4 Seconds (9.6-11.5)
[2019-03-13 16:13] LABS: ALBUMIN 3.2 g/dL (3.4-5.0); ANION GAP 8 mmol/L (5-15); CALCIUM 9.3 mg/dL (8.5-10.1); CHLORIDE 110 mmol/L (98-107); CREATININE 1.17 mg/dL (0.7-1.3)
[2019-03-13 16:14] LABS: BASOPHILS # (AUTO) 0.04 x10^3/uL (0-0.1); BASOPHILS % (AUTO) 1 % (0-1); EOSINOPHILS # (AUTO) 0.12 x10^3/uL (0-0.4); EOSINOPHILS % (AUTO) 2 % (1-7); LYMPHOCYTES # (AUTO) 1.09 x10^3/uL (1-3.4); LYMPHOCYTES % (AUTO) 16 % (22-44); MD NO; MEAN CORPUSCULAR HGB CONC 31.5 g/dL (33.2-36.2); MEAN CORPUSCULAR VOLUME 85.8 fL (81-97); MEAN PLATELET VOLUME 6.7 fL (7.4-10.4); MONOCYTES # (AUTO) 0.36 x10^3/uL (0.2-0.8); MONOCYTES % (AUTO) 5 % (2-9); NEUTROPHILS # (AUTO) 5.13 x10^3/uL (1.8-6.8); NEUTROPHILS % (AUTO) 76 % (42-75); PLATELET COUNT 311 x10^3/uL (130-400); RED BLOOD COUNT 4.73 x10^6/uL (4.38-5.82); RED CELL DISTRIBUTION WIDTH 16.3 % (9.4-14.8)
--- NOTE | 2019-03-13 16:20 | NUR ---
TO CT SCAN
== END 2019-03-13 17:44 | disposition home or self-care (01) ==
LOC: ED 17:05
DX: H53.121 Transient visual loss, right eye (principal); G45.9 Transient cerebral ischemic attack, unspecified; Z87.891 Personal history of nicotine dependence; Z95.0 Presence of cardiac pacemaker; Z88.8 Allergy status to other drugs, medicaments and biological substances
CPT/HCPCS: 36415; 70450; 80048; 82040; 85025; 85610; 85730; 99284

== ENCOUNTER 2019-03-21 09:35 | Outpatient (CLI) | payer MEDICARE | END 2019-03-21 23:59 | disposition home or self-care (01) | LOC: RAD 09:35 | PROVIDERS: ATTEND Registered Nurse | DX: G45.8 Other transient cerebral ischemic attacks and related syndromes (principal); J32.0 Chronic maxillary sinusitis; R90.82 White matter disease, unspecified | CPT/HCPCS: 70551 ==

== ENCOUNTER 2019-04-09 14:39 | Outpatient (CLI) | payer MEDICARE | END 2019-04-09 23:59 | disposition home or self-care (01) | LOC: CVU 14:39 | PROVIDERS: ATTEND Registered Nurse | DX: G45.9 Transient cerebral ischemic attack, unspecified (principal); I10 Essential (primary) hypertension | CPT/HCPCS: 93880 ==

== ENCOUNTER 2019-08-22 10:09 | Day surgery (SDC) | payer MEDICARE ==
[~2019-08-22] VITALS: Ht 172.7 cm; Wt 67.5 kg
[~2019-08-22 10:09] MED LIST changes: +PROPOFOL 10 MG/ML, 20ML ONE
[2019-08-22 10:44] VITALS: BP 120/75
[2019-08-22] MEDS ORDERED: TAMS-11 PO (10:44)
[2019-08-22] MEDS ORDERED: DILT240C61 PO (10:44)
[2019-08-22] MEDS ORDERED: ASPI-496 PO (10:44)
[2019-08-22] MEDS ORDERED: PSYL2WAF PO (10:44)
[2019-08-22] MEDS ORDERED: FAMO10TA31 PO (10:44)
[2019-08-22] MEDS ORDERED: DOCU-131 PO (10:44)
[2019-08-22] MEDS ORDERED: SIMV40TA3 PO (10:44)
[2019-08-22 11:05] LABS: BASOPHILS # (AUTO) 0.04 x10^3/uL (0-0.1); BASOPHILS % (AUTO) 1 % (0-1); EOSINOPHILS # (AUTO) 0.02 x10^3/uL (0-0.4); EOSINOPHILS % (AUTO) 0 % (1-7); LYMPHOCYTES # (AUTO) 0.86 x10^3/uL (1-3.4); LYMPHOCYTES % (AUTO) 13 % (22-44); MD NO; MEAN CORPUSCULAR HEMOGLOBIN 27.9 pg (27.5-34.5); MEAN CORPUSCULAR HGB CONC 32.3 g/dL (33.2-36.2); MEAN CORPUSCULAR VOLUME 86.3 fL (81-97); MEAN PLATELET VOLUME 6.8 fL (7.4-10.4); MONOCYTES # (AUTO) 0.42 x10^3/uL (0.2-0.8); MONOCYTES % (AUTO) 7 % (2-9); NEUTROPHILS # (AUTO) 5.06 x10^3/uL (1.8-6.8); NEUTROPHILS % (AUTO) 79 % (42-75); PLATELET COUNT 279 x10^3/uL (130-400); RED BLOOD COUNT 4.95 x10^6/uL (4.38-5.82); RED CELL DISTRIBUTION WIDTH 16.8 % (9.4-14.8)
[2019-08-22 11:13] LABS: INTERNATIONAL NORMALIZED RATIO 2.86 (0.93-1.1); PROTHROMBIN TIME 28.8 Seconds (9.6-11.5)
[2019-08-22 11:15] LABS: ANION GAP 5 mmol/L (5-15); CHLORIDE 106 mmol/L (98-107); CREATININE 1.26 mg/dL (0.7-1.3)
== END 2019-08-22 14:24 | disposition home or self-care (01) ==
LOC: CACL 10:09
PROVIDERS: ATTEND Internal Medicine Cardiovascular Disease
DX: I48.91 Unspecified atrial fibrillation (principal); E78.5 Hyperlipidemia, unspecified; I10 Essential (primary) hypertension; Z79.82 Long term (current) use of aspirin; Z86.73 Personal history of transient ischemic attack (TIA), and cerebral infarction without residual deficits
CPT/HCPCS: 36415; 71046; 80048; 85025; 85610; 85730; 92960; J2704

== ENCOUNTER 2021-02-09 08:50 | Day surgery (SDC) | payer MEDICARE ==
[~2021-02-09 08:50] MED LIST changes: +ASPI-496 PO; +DILT240C61 PO; +DOCU-131 PO; +FAMO10TA31 PO; +MELA1TAB46 PO; -MELA1TAB6 PO; -OXYC5TAB3 PO; +OXYC5TAB98 PO; -PROPOFOL 10 MG/ML, 20ML ONE; +PSYL2WAF PO; +SIMV40TA20 PO; -SIMV40TA3 PO; +TAMS-11 PO; -WARF5TAB PO-COUM; +WARF5TAB2 PO-COUM
[2021-02-09] MEDS ORDERED: MELA5TAB21 PO (09:27)
[2021-02-09] MEDS ORDERED: DILT120T3 PO (09:27)
[2021-02-09] MEDS ORDERED: APIX5TAB PO (09:27)
[2021-02-09] MEDS ORDERED: SODIUM CHLORIDE FLUSH 10ML SYR IVF SCH (21:00)
== END 2021-02-09 10:18 | disposition home or self-care (01) ==
LOC: CACL 08:50
PROVIDERS: ATTEND Internal Medicine Cardiovascular Disease
DX: I48.91 Unspecified atrial fibrillation (principal); Z53.8 Procedure and treatment not carried out for other reasons; I44.2 Atrioventricular block, complete; I10 Essential (primary) hypertension; Z79.01 Long term (current) use of anticoagulants; Z79.899 Other long term (current) drug therapy; Z87.891 Personal history of nicotine dependence; Z88.8 Allergy status to other drugs, medicaments and biological substances; Z95.0 Presence of cardiac pacemaker
CPT/HCPCS: 93005

== ENCOUNTER → 2021-03-01 | Outpatient (CLI) | payer MEDICARE ==
[~2021-03-01] MED LIST changes: +APIX5TAB PO; +DILT120T3 PO; +MELA5TAB21 PO; +OMNIPAQUE 350 MG/ML, 150 ML BOTTLE ONE
== END | disposition home or self-care (01) ==
LOC: CFH 13:30
PROVIDERS: ATTEND Physician Assistant
DX: N28.1 Cyst of kidney, acquired (principal); R31.0 Gross hematuria
CPT/HCPCS: 74178; 82565; Q9967

== ENCOUNTER 2021-03-11 01:40 | Emergency (ER) | payer MEDICARE ==
[~2021-03-11] VITALS: Ht 172.7 cm; Wt 69.9 kg
[~2021-03-11 01:40] MED LIST changes: -OMNIPAQUE 350 MG/ML, 150 ML BOTTLE ONE
--- NOTE | 2021-03-11 02:52 | NUR ---
CLEAN CATCH UA SENT TO LAB
--- NOTE | 2021-03-11 02:59 | NUR ---
PIV STARTED TO LEFT HAND 18 G X1 ATTEMPT, AND PT TOLERATED WELL, BLOOD DRAWN FOR BLOOD CULTURE #1 AND LABS. PIV TO LEFT FOREARM 20 G X2 ATTEMPTS, STARTED, AND PT TOLERATED WELL. BLOOD CULTURES #2 DRAWN TOO. PT A&OX4, AND PTS AT BEDSIDE. PTS RECTAL TEMP IS 102.2RECTAL. MADE AWARE.
[2021-03-11] MEDS ORDERED: SODIUM CHLORIDE 0.9% 1,000ML IVBOLUS ONE (03:00)
--- NOTE | 2021-03-11 03:01 | NUR ---
EKG DONE BY MARIELOS TIDWELL PT TOLERATED WELL.
[2021-03-11] MEDS ORDERED: ACETAMINOPHEN 500 MG TABLET ONE (03:07)
[2021-03-11 03:14] LABS: MICROSCOPIC INDICATED
[2021-03-11 03:20] LABS: BASOPHILS % (AUTO) 0 % (0-1); EOSINOPHILS % (AUTO) 0 % (1-7); LYMPHOCYTES % (AUTO) 5 % (22-44); MEAN CORPUSCULAR HEMOGLOBIN 29.3 pg (27.5-34.5); MEAN CORPUSCULAR HGB CONC 33.4 g/dL (33.2-36.2); MEAN PLATELET VOLUME 7.8 fL (7.4-10.4); MONOCYTES % (AUTO) 7 % (2-9); NEUTROPHILS % (AUTO) 87 % (42-75); PLATELET COUNT 138 x10^3/uL (130-400); RED BLOOD COUNT 4.88 x10^6/uL (4.38-5.82); RED CELL DISTRIBUTION WIDTH 15.6 % (9.4-14.8)
[2021-03-11] MEDS ORDERED: ACETAMINOPHEN 500 MG TABLET PO ONE (03:30)
[2021-03-11 03:39] LABS: ALBUMIN 3.3 g/dL (3.4-5.0); ANION GAP 7 mmol/L (5-15); CALCIUM 8.6 mg/dL (8.5-10.1); CHLORIDE 106 mmol/L (98-107)
[2021-03-11 03:45] LABS: ALANINE AMINOTRANSFERASE 25 U/L (12-78); ALKALINE PHOSPHATASE 51 U/L (45-117); BILIRUBIN,TOTAL 0.9 mg/dL (0.2-1.0); CREATININE 1.23 mg/dL (0.7-1.3); TOTAL PROTEIN 6.9 g/dL (6.4-8.2); TROPONIN I < 0.015 ng/mL (0.000-0.045)
--- NOTE | 2021-03-11 04:24 | NUR ---
BREAK RN: ERP AT BEDSIDE TO DISCUSS PLAN OF CARE. PT DENIES ANY NEEDS AT THIS TIME. CALL LIGHT AND PERSONAL BELONGINGS WITHIN REACH. AT BEDSIDE.
--- NOTE | 2021-03-11 04:27 | NUR ---
FOLLOWING DISCUSSION WITH ERP , PT REFUSING ADMISSION AT THIS TIME. RISKS AND BENEFITS DISCUSSED IN DETAIL WITH ERP, PT VERBALIZED UNDERSTANDING.
[2021-03-11 04:28] VITALS: BP 104/64
[2021-03-11] MEDS ORDERED: CEFDINIR 300 MG CAPSULE PO ONE (04:30)
[2021-03-11] MEDS ORDERED: CEFDINIR 300 MG CAPSULE ONE (04:30)
--- NOTE | 2021-03-11 04:50 | NUR ---
Patient given discharge instructions and they have confirmed that they understand the instructions. Patient ambulatory with steady gait. NAD, all questions answered appropriately, denies additional needs at this time. No personal belongings left in room after discharge.
== END 2021-03-11 04:52 | disposition home or self-care (01) ==
LOC: ED 02:53
DX: N30.01 Acute cystitis with hematuria (principal); R41.82 Altered mental status, unspecified; R51.9 Headache, unspecified; I48.91 Unspecified atrial fibrillation; Z95.0 Presence of cardiac pacemaker; Z86.73 Personal history of transient ischemic attack (TIA), and cerebral infarction without residual deficits; Z87.891 Personal history of nicotine dependence
CPT/HCPCS: 36415; 70450; 71045; 80053; 81001; 83605; 84145; 84484; 85025; 87040; 93005; 96360; 99285; J7030

== ENCOUNTER → 2021-03-24 | Outpatient (CLI) | payer MEDICARE | END | disposition home or self-care (01) | LOC: CVU 12:17 | PROVIDERS: ATTEND Registered Nurse | DX: I08.1 Rheumatic disorders of both mitral and tricuspid valves (principal); Z95.2 Presence of prosthetic heart valve | CPT/HCPCS: 93306 ==

== ENCOUNTER 2021-04-21 10:19 | Day surgery (SDC) | payer MEDICARE ==
[~2021-04-21] VITALS: Ht 172.7 cm; Wt 68.0 kg
[2021-04-21] MEDS ORDERED: SOTA80TA18 PO (10:47)
[2021-04-21] MEDS ORDERED: PROPOFOL 10 MG/ML, 20ML ONE (11:07)
[2021-04-21 11:11] LABS: BASOPHILS % (AUTO) 1 % (0-1); EOSINOPHILS % (AUTO) 1 % (1-7); LYMPHOCYTES % (AUTO) 19 % (22-44); MEAN CORPUSCULAR HEMOGLOBIN 28.9 pg (27.5-34.5); MEAN CORPUSCULAR HGB CONC 32.7 g/dL (33.2-36.2); MEAN PLATELET VOLUME 6.8 fL (7.4-10.4); MONOCYTES % (AUTO) 6 % (2-9); NEUTROPHILS % (AUTO) 74 % (42-75); PLATELET COUNT 230 x10^3/uL (130-400); RED BLOOD COUNT 5.06 x10^6/uL (4.38-5.82); RED CELL DISTRIBUTION WIDTH 15.3 % (9.4-14.8)
[2021-04-21 11:21] LABS: ANION GAP 5 mmol/L (5-15); CALCIUM 9.2 mg/dL (8.5-10.1); CHLORIDE 106 mmol/L (98-107); CREATININE 1.32 mg/dL (0.7-1.3)
== END 2021-04-21 12:04 | disposition home or self-care (01) ==
LOC: CACL 10:19
PROVIDERS: ATTEND Internal Medicine Cardiovascular Disease
DX: I48.92 Unspecified atrial flutter (principal); I10 Essential (primary) hypertension; E78.2 Mixed hyperlipidemia; Z87.891 Personal history of nicotine dependence; Z79.899 Other long term (current) drug therapy; Z98.890 Other specified postprocedural states; Z88.8 Allergy status to other drugs, medicaments and biological substances; Z79.01 Long term (current) use of anticoagulants; Z95.0 Presence of cardiac pacemaker; Z72.89 Other problems related to lifestyle
CPT/HCPCS: 36415; 80048; 85025; 92960; 93005; J2704